=== PATIENT | male | born 1970 | race African-American/Black ===

== ENCOUNTER 2016-12-02 13:08 | Emergency (ER) | payer OTHER ==
[~2016-12-02] VITALS: Ht 167.6 cm; Wt 74.8 kg
--- NOTE | 2016-12-02 13:08 | NUR ---
Patient BIBA and taken to bed 06 via gurney per EMS.
[2016-12-02 13:13] VITALS: BP 138/64
--- NOTE | 2016-12-02 13:18 | NUR ---
Dr. Ghotra evaluating patient at bedside.
--- NOTE | 2016-12-02 13:23 | NUR ---
PT BIBA AFTER MECHANICAL FALL AT HOME AND NOW C/O RIGHT HAND AND LEFT ANKLE PAIN. PT DENIES ANY OTHER MEDICAL CONDITIONS, DENIES N/V/D; SKIN IS PINK/WARM/DRY; AAOX4 WITH EVEN AND STEADY GAIT; LUNGS CLEAR BL; HR EVEN AND REGULAR; PT DENIES ANY FEVER, CP, SOB, OR COUGH AT THIS TIME; PATIENT STATES PAIN OF 8/10 AT THIS TIME; VSS; PATIENT POSITIONED FOR COMFORT; HOB ELEVATED; BEDRAILS UP X2; BED DOWN. ER MD MADE AWARE OF PT STATUS.
--- NOTE | 2016-12-02 13:33 | NUR ---
XRAY at bedside.
[2016-12-02 14:15] VITALS: BP 138/85
--- NOTE | 2016-12-02 14:15 | NUR ---
Patient discharged with v/s stable. Written and verbal after care instructions given and explained. Patient alert, oriented and verbalized understanding of instructions. Ambulatory with steady gait. All questions addressed prior to discharge. ID band removed. Patient advised to follow up with PMD. Rx of MOTRIN 600MG given. Patient educated on indication of medication including possible reaction and side effects. Opportunity to ask questions provided and answered.
== END 2016-12-02 14:15 | disposition home or self-care (01) ==
LOC: MED 13:51
DX: S93.402A Sprain of unspecified ligament of left ankle, initial encounter (principal); S60.221A Contusion of right hand, initial encounter; S60.511A Abrasion of right hand, initial encounter; F17.200 Nicotine dependence, unspecified, uncomplicated; W18.39XA Other fall on same level, initial encounter; Y93.02 Activity, running; Y92.410 Unspecified street and highway as the place of occurrence of the external cause; Y99.8 Other external cause status
CPT/HCPCS: 73130; 73610; 99284; Q0092